=== PATIENT | female | born 1955 | race Caucasian/White ===

== ENCOUNTER → 2019-09-13 | Outpatient (CLI) | payer MEDICARE ==
[~2019-09-13] MED LIST: ALLEGRA180 MG PO; ASPIR 8181 MG PO; CALCIUM600 MG PO; CRESTOR10 MG PO; DIATRIZOATE MEGL/DIATRIZOA SOD 30 ML BTL PO ONE; FERROUS GLUCONATE PO; FUROSEMIDE20 MG PO; HUMALOG100 UNIT/1 SQ; HUMULIN R100 UNIT/2 SQ; IOPAMIDOL 370 MG/ML 200 ML INFUS..BTL INJ ONE; LANTUS 3ML100 UNITS/ SQ; LEVOXYL125 MCG PO; LISINOPRIL40 MG PO; METFORMIN HCL1000 MG PO; METOPROLOL SUCC25 MG PO; MULTIVITAMINS1 EAC8; NORVASC10 MG PO; OMEGA 3 1,0001 EACH; PANTOPRAZOLE SO40 MG PO; PAROXETINE HCL40 MG PO; PROVENTIL HFA6.7 GM; SODIUM CHLORIDE 0.9% 50ML 50 ML ONE; SUCRALFATE; VICTOZA SQ; VITAMIN B-12500 MCG PO; VITAMIN B50; VITAMIN B6; VITAMIN C PO; VITAMIN D350000 UNIT PO; WELCHOL625 MG PO
[2019-09-13 10:55] LABS: BLOOD UREA NITROGEN 11 mg/dL (7-26); BUN/CREATININE RATIO 15 (6-25); CREATININE, SERUM 0.71 mg/dL (0.57-1.11); EST GLOMERULAR FILTRATION RATE > 60 ML/MIN (60-)
--- NOTE | 2019-09-13 12:01 | Diagnostic Imaging Report ---
EXAMINATION: CT of the abdomen and pelvis with contrast. TECHNIQUE: Spiral CT images of the abdomen and pelvis were performed from the lung bases to the lesser trochanters after the intravenous administration of 100 cc Isovue-370 and the oral administration of water. Coronal and sagittal reformatted images were obtained. COMPARISON: None. The report for a CT scan of the abdomen and pelvis with contrast 03/23/2017 was available for review. CLINICAL HISTORY:Patient reports history of umbilical hernia repair, gastric bypass, gastric sleeve, probable mass in abdomen DISCUSSION: ABDOMEN/PELVIS: LOWER THORAX:Unremarkable. HEPATOBILIARY: Dystrophic calcification of the hepatic dome. Nodular contour of the liver with hypertrophy of the left lobe in keeping with cirrhosis. No focal hepatic lesions otherwise. Gallbladder has been removed. No intra or extrahepatic biliary ductal dilatation. SPLEEN: The spleen is enlarged, measuring nearly 20 cm in transverse and no focal splenic lesion. PANCREAS: No focal masses or ductal dilatation. ADRENALS: No adrenal nodules. KIDNEYS/URETERS: No hydronephrosis, stones, or solid mass lesions. PELVIC ORGANS/BLADDER: The urinary bladder is incompletely distended and poorly evaluated. The uterus is not identified and has presumably been removed. No adnexal mass. PERITONEUM/RETROPERITONEUM: Trace ascites, average internal attenuation 10-15 Hounsfield units. LYMPH NODES: No pelvic sidewall, retroperitoneal, or mesenteric lymphadenopathy. VESSELS: There is atherosclerotic calcification of the abdominal aorta and branch vessels without aneurysmal dilatation. Hepatic arterial anatomy appears conventional. A single renal artery perfuses each kidney. Portal vein, splenic vein, and central superior mesenteric vein are patent. Recanalized umbilical vein is noted. GI TRACT: The large bowel shows no distention or wall thickening though the majority of the colon is collapsed and suboptimally evaluated. The appendix is normal. Apparent narrowing of the proximal ascending colon is likely related to peristalsis. Postsurgical changes of the stomach related to prior bariatric procedure. No small bowel dilatation to suggest obstruction. BONES AND SOFT TISSUE: No osseous destructive lesions. Multilevel degenerative disc changes and facet arthropathy of the lumbar spine. Postsurgical changes of the anterior abdominal wall. Fat-containing midline supraumbilical hernia (series 2 image 49). Complex right and left paramedian recurrent ventral abdominal wall hernias seen on series 2 image 65. The hernia sacs contain omental fat and the left-sided hernia sac contains a small amount of loculated ascites without peripheral enhancement. No bowel loops are contained within either hernia. No additional focal soft tissue abnormalities. IMPRESSION: Complex recurrent bilateral paramedian ventral abdominal wall hernias contain omental fat and a small amount of loculated ascites, possibly accounting for the clinically palpable "lower abdominal lump". No herniation of bowel or evidence of bowel obstruction. Cirrhosis with portal hypertension, evidenced by splenomegaly, trace ascites, and recanalization of the umbilical vein. No focal hepatic masses on this single phase examination. Narrowing and wall thickening of the proximal ascending colon felt to be related to peristalsis. However, inflammatory changes along this same region of bowel were described on the comparison examination. Direct visualization by colonoscopy is suggested if not recently performed. Signed by: Dr. Say Landry M.D. on 09/13/2019 11:57 AM
== END ==
LOC: CT 09:59
PROVIDERS: ATTEND Internal Medicine Gastroenterology
DX: R10.84 Generalized abdominal pain (principal)
CPT/HCPCS: 36415; 74177; 82565; 84520; Q9967

== ENCOUNTER → 2019-12-05 | Outpatient (CLI) | payer MEDICARE, OTHER ==
[~2019-12-05] MED LIST changes: +CARVEDILOL3.125 MG PO; -DIATRIZOATE MEGL/DIATRIZOA SOD 30 ML BTL PO ONE; +DICYCLOMINE HCL20 MG PO; -IOPAMIDOL 370 MG/ML 200 ML INFUS..BTL INJ ONE; -SODIUM CHLORIDE 0.9% 50ML 50 ML ONE; +TRESIBA100 UNIT/1 SQ; +VITAMIN D PO; +VITAMIN D32000 UNI2 PO
[2019-12-05 14:24] LABS: BASOPHILS % 0.3 % (0.0-1.0); EOSINOPHILS # (AUTO) 0.1 (0.0-0.4); EOSINOPHILS % 2.1 % (0.0-6.0); HEMATOCRIT 37.8 % (34.2-44.1); HEMOGLOBIN 12.7 g/dL (12.0-16.0); LYMPHOCYTES # (AUTO) 0.8 (1.0-3.2); MEAN CORPUSCULAR HEMOGLOBIN 30.5 pg (28-32); MEAN CORPUSCULAR HGB CONC 33.6 g/dL (31-35); MEAN CORPUSCULAR VOLUME 90.9 fL (81-99); MONOCYTES # (AUTO) 0.3 (0.2-0.8); MONOCYTES % 10.2 % (4.4-11.3); NEUTROPHILS # (AUTO) 2.1 (2.1-6.9); NEUTROPHILS % 63.1 % (38.7-80.0); PLATELET COUNT 51 x10e3/uL (140-360); RED BLOOD COUNT 4.16 x10e6/uL (3.6-5.1); RED CELL DISTRIBUTION WIDTH 14.9 % (11.7-14.4)
[2019-12-05 14:35] LABS: INR 1.3; PROTHROMBIN TIME 17.1 seconds (11.9-14.5)
[2019-12-05 14:36] LABS: PARTIAL THROMBOPLASTIN TIME 38.4 seconds (23.8-35.5)
[2019-12-05 14:47] LABS: ALANINE AMINOTRANSFERASE 29 IU/L (0-55); ALBUMIN 3.4 g/dL (3.5-5.0); ALBUMIN/GLOBULIN RATIO 1.1 (0.8-2.0); ALKALINE PHOSPHATASE 76 IU/L (40-150); ANION GAP 8.2 mmol/L (8-16); BLOOD UREA NITROGEN 16 mg/dL (7-26); BUN/CREATININE RATIO 21 (6-25); CALCIUM 8.9 mg/dL (8.4-10.2); CARBON DIOXIDE 27 mmol/L (22-29); CHLORIDE 110 mmol/L (98-107); CREATININE, SERUM 0.76 mg/dL (0.57-1.11); EST GLOMERULAR FILTRATION RATE > 60 ML/MIN (60-); GLUCOSE 98 mg/dL (74-118); POTASSIUM 4.2 mmol/L (3.5-5.1); SODIUM 141 mmol/L (136-145)
== END ==
LOC: RAD 05:00 → EDSTATUS 12-12 10:00
PROVIDERS: ATTEND Internal Medicine Gastroenterology
DX: Z01.818 Encounter for other preprocedural examination (principal); R13.10 Dysphagia, unspecified; R94.8 Abnormal results of function studies of other organs and systems; Z53.8 Procedure and treatment not carried out for other reasons
CPT/HCPCS: 36415; 80053; 85025; 85610; 85730; 93005

== ENCOUNTER → 2020-03-06 | Day surgery (SDC) | payer MEDICARE, OTHER ==
[~2020-03-06] MED LIST changes: +B COMPLEX1 EACH PO; +FENTANYL CITRATE/PF 100MCG/2 ML INJ ONE; +GLYCOPYRROLATE INJ 0.2 MG/ML VIAL ONE; +HYOSCYAMINE 0.125 MG TAB ONE; +KETAMINE HCL INJ 50 MG/ML 10 ML VIAL ONE; +LIDOCAINE HCL 2% LOCAL INJ 5 ML SDV VIAL INJ ONE; +MIDAZOLAM HCL 5 MG/ML VIAL ONE; +PROPOFOL IV EMULSION 10 MG/ML 20 ML VIAL ONE; +[UNRECOGNIZED DRUG - OTHER] PO
[2020-03-06 11:13] LABS: BASOPHILS % 0.2 % (0.0-1.0); EOSINOPHILS # (AUTO) 0.1 (0.0-0.4); EOSINOPHILS % 2.4 % (0.0-6.0); HEMATOCRIT 37.5 % (34.2-44.1); HEMOGLOBIN 12.8 g/dL (12.0-16.0); LYMPHOCYTES # (AUTO) 0.8 (1.0-3.2); LYMPHOCYTES % 17.2 % (18.0-39.1); MEAN CORPUSCULAR HEMOGLOBIN 30.9 pg (28-32); MEAN CORPUSCULAR HGB CONC 34.1 g/dL (31-35); MEAN CORPUSCULAR VOLUME 90.6 fL (81-99); MONOCYTES # (AUTO) 0.4 (0.2-0.8); MONOCYTES % 8.2 % (4.4-11.3); NEUTROPHILS # (AUTO) 3.3 (2.1-6.9); NEUTROPHILS % 71.8 % (38.7-80.0); PLATELET COUNT 72 x10e3/uL (140-360); RED BLOOD COUNT 4.14 x10e6/uL (3.6-5.1); RED CELL DISTRIBUTION WIDTH 15.2 % (11.7-14.4)
[2020-03-06 11:33] LABS: ANION GAP 13.9 mmol/L (8-16); BLOOD UREA NITROGEN 12 mg/dL (7-26); BUN/CREATININE RATIO 16 (6-25); CARBON DIOXIDE 23 mmol/L (22-29); CHLORIDE 112 mmol/L (98-107); CREATININE, SERUM 0.75 mg/dL (0.57-1.11); EST GLOMERULAR FILTRATION RATE > 60 ML/MIN (60-); GLUCOSE 91 mg/dL (74-118); POTASSIUM 3.9 mmol/L (3.5-5.1); SODIUM 145 mmol/L (136-145)
[2020-03-06 11:36] LABS: INR 1.29; PROTHROMBIN TIME 16.9 seconds (11.9-14.5)
[2020-03-06 13:05] VITALS: BP 125/71
--- NOTE | 2020-03-06 13:53 | Operative Report ---
DATE OF PROCEDURE: 03/06/2020 SURGEON: Juan R Caicedo MD PROCEDURES: EGD with esophageal dilatation and biopsies and colonoscopy with polypectomy and biopsies. INDICATION FOR EGD: Dysphagia. INDICATIONS FOR COLONOSCOPY: Surveillance colonoscopy, personal history of colon polyps, abnormal CAT scan of the abdomen. MEDICATIONS: The patient was done under MAC, please see anesthesiologist's note. PROCEDURE IN DETAIL: With the patient in the left lateral decubitus position, a flexible fiberoptic Olympus gastroscope was introduced into the esophagus under direct visualization without any difficulty. Grade 2 esophageal varices were noted without active bleeding or stigmata of recent hemorrhage. Mild stricture was noted at the GE junction that was dilated to size 50-Italian Hung. The scope was then advanced with ease into the stomach and the patient appears to be status post gastric sleeve. The mucosa overlying the antrum and the body revealed some patchy intense erythema and moderate edema, and biopsies were obtained and sent to stain for H. pylori. Also, there was obvious changes of portal hypertensive gastropathy noted pretty much throughout the stomach. The pylorus was of normal contour and shape, was intubated with ease and the scope was advanced all the way to the second portion of the duodenum. Biopsies were obtained from the proximal second portion and duodenal bulb to rule out sprue. The scope was then withdrawn back into the stomach and retroflexed, and there is no fundal or cardiac varices noted. The scope was then straightened out, it was subsequently withdrawn, and the patient tolerated the procedure well. IMPRESSION: 1. Esophageal varices grade 2 without active bleeding or stigmata of recent hemorrhage. 2. Esophagus dilated to size 50-Italian Hung. 3. Status post gastric sleeve. 4. Gastritis, biopsied, biopsies sent to stain for Helicobacter pylori. 5. Portal hypertensive gastropathy. 6. Rule out sprue. PLAN: Follow up histology. Initiate Protonix 40 mg one p.o. q.a.m. before meals. The patient was then turned around and after adequate lubrication of the anal canal, a flexible fiberoptic Olympus colonoscope was inserted into the rectum with ease and advanced all the way to the cecum. Mucosa overlying the cecum appeared to be within normal limits. The ileocecal valve was intubated and the scope was advanced into the terminal ileum. Biopsies were obtained from the terminal ileum. The scope was then withdrawn back into the colon. It was then withdrawn slowly. Mucosa overlying the ascending and the transverse appeared to be within normal limits. A minute polyp was hot biopsied from the proximal descending colon. Some mild inflammatory changes were noted in the sigmoid colon and biopsies were obtained. The rectum grossly appeared to be within normal limits. The scope was then retroflexed into the distal rectum and moderate-sized internal hemorrhoids were noted, none of which was actively bleeding. The scope was then straightened out and it was subsequently withdrawn after securing an adequate stool specimen that was sent for the appropriate stool studies, as the patient does have chronic diarrhea. The patient tolerated the procedure well. IMPRESSION: 1. Descending colon polyp, hot biopsied. 2. Sigmoid colon, mild segmental colitis, biopsies obtained. 3. Internal hemorrhoids, none actively bleeding. PLAN: Follow up histology. Follow up stool studies. Initiate Bentyl 20 mg one p.o. t.i.d. MD BALA Oh/CATHY /[id number] cc: Caleb Vogt
[2020-03-06 16:21] LABS: WBC,FECAL (FECAL LACTOFERRIN) NEGATIVE (NEGATIVE)
[2020-03-07 14:06] LABS: C DIFFICILE TOXIN A&B AMP PROB NEGATIVE (NEGATIVE)
== END | disposition home or self-care (01) ==
LOC: OR 10:45
PROVIDERS: ATTEND Internal Medicine Gastroenterology
DX: K29.50 Unspecified chronic gastritis without bleeding (principal); D12.4 Benign neoplasm of descending colon; K22.2 Esophageal obstruction; K50.10 Crohn's disease of large intestine without complications; R93.5 Abnormal findings on diagnostic imaging of other abdominal regions, including retroperitoneum; K74.60 Unspecified cirrhosis of liver; I85.10 Secondary esophageal varices without bleeding; K76.6 Portal hypertension; K31.89 Other diseases of stomach and duodenum; K64.8 Other hemorrhoids; Z98.84 Bariatric surgery status; E11.9 Type 2 diabetes mellitus without complications; J45.909 Unspecified asthma, uncomplicated; E78.00 Pure hypercholesterolemia, unspecified; I10 Essential (primary) hypertension; E03.9 Hypothyroidism, unspecified; M81.0 Age-related osteoporosis without current pathological fracture; Z88.0 Allergy status to penicillin; Z01.812 Encounter for preprocedural laboratory examination; Z11.59 Encounter for screening for other viral diseases; Z79.4 Long term (current) use of insulin; Z79.84 Long term (current) use of oral hypoglycemic drugs; Z68.41 Body mass index [BMI] 40.0-44.9, adult; Z80.0 Family history of malignant neoplasm of digestive organs
CPT/HCPCS: 36415; 43239; 43450; 45380; 45384; 80048; 82948; 83630; 83993; 85025; 85610; 85730; 87045; 87177; 87328; 87493; 87635; J2001; J2250; J2704; J3010

== ENCOUNTER → 2021-09-07 | Day surgery (SDC) | payer MEDICARE ==
[2021-09-04 13:57] LABS: BASOPHILS % 0.3 % (0.0-1.0); EOSINOPHILS # (AUTO) 0.1 (0.0-0.4); HEMATOCRIT 32.3 % (34.2-44.1); HEMOGLOBIN 10.3 g/dL (12.0-16.0); LYMPHOCYTES # (AUTO) 0.7 (1.0-3.2); LYMPHOCYTES % 21.9 % (18.0-39.1); MEAN CORPUSCULAR HEMOGLOBIN 29.6 pg (28-32); MEAN CORPUSCULAR HGB CONC 31.9 g/dL (31-35); MEAN CORPUSCULAR VOLUME 92.8 fL (81-99); MONOCYTES # (AUTO) 0.4 (0.2-0.8); MONOCYTES % 12.7 % (4.4-11.3); NEUTROPHILS # (AUTO) 1.9 (2.1-6.9); NEUTROPHILS % 62.8 % (38.7-80.0); PLATELET COUNT 52 x10e3/uL (140-360); RED BLOOD COUNT 3.48 x10e6/uL (3.6-5.1); RED CELL DISTRIBUTION WIDTH 15.7 % (11.7-14.4)
[2021-09-04 14:09] LABS: INR 1.32; PROTHROMBIN TIME 17.5 seconds (11.9-14.5)
[2021-09-04 14:10] LABS: PARTIAL THROMBOPLASTIN TIME 39.4 seconds (23.8-35.5)
[2021-09-04 14:16] LABS: ALBUMIN 2.9 g/dL (3.5-5.0); ALBUMIN/GLOBULIN RATIO 0.8 (0.8-2.0); ANION GAP 11.3 mmol/L (8-16); CALCIUM 8.3 mg/dL (8.4-10.2); CREATININE, SERUM 0.69 mg/dL (0.57-1.11); POTASSIUM 4.3 mmol/L (3.5-5.1)
[~2021-09-07] MED LIST changes: +BIOTIN-D1 GM; +BUPROPION HCL100 MG PO; -FENTANYL CITRATE/PF 100MCG/2 ML INJ ONE; -GLYCOPYRROLATE INJ 0.2 MG/ML VIAL ONE; -HYOSCYAMINE 0.125 MG TAB ONE; -KETAMINE HCL INJ 50 MG/ML 10 ML VIAL ONE; +METOCLOPRAMIDE HCL 10 MG/2ML VIAL ONE; -MIDAZOLAM HCL 5 MG/ML VIAL ONE; +NOVOLOG100 UNIT/1 SC; +OXYBUTYNIN CHLOR5 MG PO; +PRAMIPEXOLE D0.25 MG PO
[2021-09-07 15:12] VITALS: BP 107/70
== END | disposition home or self-care (01) ==
LOC: ENDO 12:40
PROVIDERS: ATTEND Internal Medicine Gastroenterology
DX: K74.60 Unspecified cirrhosis of liver (principal); I85.10 Secondary esophageal varices without bleeding; K29.50 Unspecified chronic gastritis without bleeding; K76.6 Portal hypertension; K31.89 Other diseases of stomach and duodenum; K21.9 Gastro-esophageal reflux disease without esophagitis; Z98.84 Bariatric surgery status; I10 Essential (primary) hypertension; D69.6 Thrombocytopenia, unspecified; E03.9 Hypothyroidism, unspecified; E11.9 Type 2 diabetes mellitus without complications; Z88.0 Allergy status to penicillin; Z01.810 Encounter for preprocedural cardiovascular examination; Z01.812 Encounter for preprocedural laboratory examination; Z20.822 Contact with and (suspected) exposure to COVID-19; Z79.82 Long term (current) use of aspirin; Z79.4 Long term (current) use of insulin; Z79.899 Other long term (current) drug therapy
CPT/HCPCS: 36415 ×2; 43239; 43450; 80053; 82948; 85025; 85610; 85730; 93005; C9113; J2001; J2704; J2765; U0002

== ENCOUNTER → 2021-09-09 | Outpatient (CLI) | payer MEDICARE ==
[~2021-09-09] MED LIST changes: -LIDOCAINE HCL 2% LOCAL INJ 5 ML SDV VIAL INJ ONE; -METOCLOPRAMIDE HCL 10 MG/2ML VIAL ONE; -PROPOFOL IV EMULSION 10 MG/ML 20 ML VIAL ONE
== END ==
LOC: US 07:26
PROVIDERS: ATTEND Internal Medicine Gastroenterology
DX: K76.0 Fatty (change of) liver, not elsewhere classified (principal)
CPT/HCPCS: 76700